=== PATIENT | male | born 1960 | race African-American/Black ===

== ENCOUNTER 2018-12-07 10:49 | Emergency (ER) | payer OTHER ==
[~2018-12-07] VITALS: Ht 177.8 cm; Wt 75.0 kg
[2018-12-07] MEDS ORDERED: MORPHINE SULFATE 4 MG/ML CPJ (NOT FOR IM USE) IV STA (11:43)
[2018-12-07] MEDS ORDERED: ONDANSETRON HCL 4MG/2ML INJ IV STA (11:43)
[2018-12-07] MEDS ORDERED: ETOMIDATE 2MG/ML 10ML VIAL IV ONE (12:10)
[2018-12-07] MEDS ORDERED: MORPHINE SULFATE 4 MG/ML CPJ (NOT FOR IM USE) IV ONE (14:15)
[2018-12-07] MEDS ORDERED: ONDANSETRON HCL 4MG/2ML INJ IV ONE (14:15)
[2018-12-07 17:30] VITALS: BP 120/75
== END 2018-12-07 17:50 | disposition home or self-care (01) ==
LOC: ER 10:49
DX: T84.020A Dislocation of internal right hip prosthesis, initial encounter (principal); Y83.8 Other surgical procedures as the cause of abnormal reaction of the patient, or of later complication, without mention of misadventure at the time of the procedure; Y92.018 Other place in single-family (private) house as the place of occurrence of the external cause
CPT/HCPCS: 27265; 73502; 96374; 96375; 96376; 99152; 99285; J2270; J2405; J3490; L1830; Z7610

== ENCOUNTER 2019-01-23 14:19 | Emergency (ER) | payer OTHER ==
[~2019-01-23] VITALS: Ht 172.7 cm; Wt 70.0 kg
[2019-01-23] MEDS ORDERED: MORPHINE SULFATE 4 MG/ML CPJ (NOT FOR IM USE) IV STA (14:42)
[2019-01-23] MEDS ORDERED: SODIUM CHLORIDE 0.9% 1,000 ML IV ONE (14:42)
[2019-01-23] MEDS ORDERED: ONDANSETRON HCL 4MG/2ML INJ IV STA (14:42)
[2019-01-23 15:41] LABS: HEMATOCRIT. 39.6 % (42.0-52.0); MEAN CORPUSCULAR HEMOGLOBIN 29.2 pg (28.0-32.0); MEAN CORPUSCULAR VOLUME 88.5 fL (80.0-94.0); MEAN PLATELET VOLUME 9.5 fl (7.4-10.4); PLATELET 278 x1000/uL (130-400); RED BLOOD CELL COUNT 4.47 mill/uL (4.7-6.1); RED CELL DISTRIBUTION WIDTH 16.7 % (11.6-14.6)
[2019-01-23 15:44] LABS: CHLORIDE 98 mEq/L (98-107)
[2019-01-23 15:47] LABS: PARTIAL THROMBOPLASTIN TIME 23.1 sec (23.4-31.0); PROTHROMBIN TIME 10.5 sec (9.6-11.0)
[2019-01-23] MEDS ORDERED: FENTANYL CITRATE/PF 50MCG/ML 2ML VIAL IV ONE (16:15)
[2019-01-23] MEDS ORDERED: KETAMINE HCL 50 MG/ML 10ML IV ONE (16:15)
[2019-01-23] MEDS ORDERED: PROPOFOL 200MG/20ML VIAL IV ONE (16:15)
[2019-01-23] MEDS ORDERED: MIDAZOLAM HCL 2 MG/2 ML VIAL IV ONE (16:15)
[2019-01-23 16:27] LABS: PLATELET ESTIMATE NORMAL
[2019-01-23 18:48] VITALS: BP 149/84
== END 2019-01-23 19:09 | disposition home or self-care (01) ==
LOC: ER 14:19
DX: S73.004A Unspecified dislocation of right hip, initial encounter (principal); X58.XXXA Exposure to other specified factors, initial encounter; Y93.89 Activity, other specified; Y92.89 Other specified places as the place of occurrence of the external cause; Y99.8 Other external cause status
CPT/HCPCS: 27250; 36415; 72170; 73502; 80053; 85025; 85610; 85730; 96374; 96375; 99152; 99153; 99285; J2250; J2270; J2405; J2704; J3010; J3490; J7030; L1830

== ENCOUNTER 2019-04-28 03:44 | Emergency (ER) | payer OTHER ==
[~2019-04-28] VITALS: Ht 175.3 cm; Wt 64.0 kg
[2019-04-28] MEDS ORDERED: ONDANSETRON HCL 4MG/2ML INJ IV STA ×2 (06:10→07:51)
[2019-04-28] MEDS ORDERED: MORPHINE SULFATE 4 MG/ML CPJ (NOT FOR IM USE) IV STA ×2 (06:10→07:51)
[2019-04-28] MEDS ORDERED: SODIUM CHLORIDE 0.9% 1,000 ML IV ONE (06:10)
[2019-04-28 06:40] LABS: BASOPHILS % 0.8 % (0.0-2.0); EOSINOPHILS % 0.6 % (0.0-5.0); HEMATOCRIT. 35.3 % (42.0-52.0); HEMOGLOBIN. 11.5 g/dL (14.0-18.0); LYMPHOCYTES % 31.9 % (20.0-50.0); MEAN CORPUSCULAR HEMOGLOBIN 30.7 pg (28.0-32.0); MEAN CORPUSCULAR VOLUME 94.4 fL (80.0-94.0); MEAN PLATELET VOLUME 8.8 fl (7.4-10.4); MONOCYTES % 9.5 % (2.0-8.0); NEUTROPHILS % 57.2 % (40.0-76.0); PLATELET 246 x1000/uL (130-400); RED BLOOD CELL COUNT 3.74 mill/uL (4.7-6.1); RED CELL DISTRIBUTION WIDTH 16.2 % (11.6-14.6)
[2019-04-28 06:43] LABS: CHLORIDE 103 mEq/L (98-107)
[2019-04-28 06:46] LABS: PARTIAL THROMBOPLASTIN TIME 23.2 sec (23.4-31.0); PROTHROMBIN TIME 10.5 sec (9.6-11.0)
[2019-04-28] MEDS ORDERED: KCL 10MEQ/50ML PREMIX 50 ML IV ONE (07:00)
[2019-04-28 08:53] VITALS: BP 145/81
== END 2019-04-28 09:13 | disposition short-term general hospital (02) ==
LOC: ER 03:44
DX: S73.004A Unspecified dislocation of right hip, initial encounter (principal); Z96.641 Presence of right artificial hip joint; W01.0XXA Fall on same level from slipping, tripping and stumbling without subsequent striking against object, initial encounter; Y93.89 Activity, other specified; Y92.018 Other place in single-family (private) house as the place of occurrence of the external cause
CPT/HCPCS: 36415; 72170; 73502; 80053; 85025; 85610; 85730; 86850; 86900; 86901; 93005; 96361; 96374; 96375; 96376; 99285; J2270; J2405; J3480; J7030; Z7610

== ENCOUNTER 2020-11-10 08:34 | Emergency (ER) | payer OTHER ==
[~2020-11-10] VITALS: Ht 175.3 cm; Wt 69.0 kg
[2020-11-10] MEDS ORDERED: ONDANSETRON HCL 4MG/2ML INJ IV STA (08:53)
[2020-11-10] MEDS ORDERED: FAMOTIDINE 20MG/2ML VIAL IV STA (08:53)
[2020-11-10] MEDS ORDERED: SODIUM CHLORIDE 0.9% 1,000 ML IV ONE (09:00)
[2020-11-10 09:59] LABS: BASOPHILS % 0.7 % (0.0-2.0); HEMATOCRIT. 49.2 % (42.0-52.0); HEMOGLOBIN. 15.4 g/dL (14.0-18.0); LYMPHOCYTES % 7.4 % (20.0-50.0); MEAN CORPUSCULAR HEMOGLOBIN 28.5 pg (28.0-32.0); MEAN CORPUSCULAR VOLUME 91.1 fL (80.0-94.0); MEAN PLATELET VOLUME 10.1 fl (7.4-10.4); MONOCYTES % 5.3 % (2.0-8.0); NEUTROPHILS % 86.6 % (40.0-76.0); PLATELET 232 x1000/uL (130-400); RED BLOOD CELL COUNT 5.39 mill/uL (4.7-6.1); RED CELL DISTRIBUTION WIDTH 15.8 % (11.6-14.6)
[2020-11-10 10:00] LABS: CHLORIDE 87 mEq/L (98-107)
[2020-11-10 10:43] LABS: INR 0.9; PROTHROMBIN TIME 9.9 sec (9.6-11.0)
[2020-11-10] MEDS ORDERED: ONDA4TAB5 MT (11:04)
[2020-11-10] MEDS ORDERED: B50 MT (11:20)
[2020-11-10 11:50] VITALS: BP 127/72
== END 2020-11-10 11:52 | disposition home or self-care (01) ==
LOC: ER 08:34
DX: R11.2 Nausea with vomiting, unspecified (principal); R10.9 Unspecified abdominal pain; R07.9 Chest pain, unspecified; Z79.899 Other long term (current) drug therapy
CPT/HCPCS: 36415; 71045; 80053; 83690; 85025; 85610; 93005; 96361; 96374; 96375; 99285; J2405; J3490; J7030

== ENCOUNTER 2024-07-18 21:41 | Emergency (ER) | payer OTHER ==
[~2024-07-18] VITALS: Ht 175.3 cm; Wt 62.0 kg
[~2024-07-18 21:41] MED LIST: B50 MT; ONDA4TAB5 MT
[2024-07-18] MEDS ORDERED: PROPOFOL 200MG/20ML VIAL IV PRN (22:30)
[2024-07-18 23:08] LABS: BASOPHILS % 0.5 % (0.0-2.0); EOSINOPHILS % 0.4 % (0.0-5.0); HEMATOCRIT. 36.9 % (42.0-52.0); HEMOGLOBIN. 11.8 g/dL (14.0-18.0); LYMPHOCYTES % 33.6 % (20.0-50.0); MEAN CORPUSCULAR HEMOGLOBIN 29.6 pg (28.0-32.0); MEAN CORPUSCULAR HGB CONC 32.1 g/dL (31.0-37.0); MEAN CORPUSCULAR VOLUME 92.2 fL (80.0-94.0); MEAN PLATELET VOLUME 9.2 fl (7.4-10.4); MONOCYTES % 8.2 % (2.0-8.0); NEUTROPHILS % 57.3 % (40.0-76.0); PLATELET 199 x1000/uL (130-400); RED CELL DISTRIBUTION WIDTH 18.9 % (11.6-14.6); WHITE BLOOD COUNT 9.6 x1000/uL (4.5-11.0)
[2024-07-18 23:15] LABS: CHLORIDE 101 mEq/L (98-107); POTASSIUM 3.7 mEq/L (3.5-5.1); SODIUM 139 mEq/L (136-145)
[2024-07-18 23:16] LABS: CARBON DIOXIDE 27 mEq/L (21-32)
[2024-07-18 23:17] LABS: CALCIUM 8.5 mg/dL (8.7-10.4)
[2024-07-18 23:21] LABS: CREATININE 1.2 mg/dL (0.6-1.3); GLUCOSE 102 mg/dL (70-105); UREA NITROGEN BLOOD 12 mg/dL (9-23)
[2024-07-18] MEDS: ACETAMINOPHEN 1000MG/100ML 100 ML IV NR (23:35)
[2024-07-18] MEDS: SODIUM CHLORIDE 0.9% 500 ML IV ONE (23:35)
[2024-07-18 23:57] VITALS: TEMP 97.7; O2SAT 100
[2024-07-19] MEDS ORDERED: IBUP-2029 MT (00:53)
[2024-07-19 01:26] VITALS: BP 114/70; PULSE 86; RESP 12; O2SAT 100
== END 2024-07-19 01:26 | disposition home or self-care (01) ==
LOC: ER 21:41
DX: T84.020A Dislocation of internal right hip prosthesis, initial encounter (principal); X58.XXXA Exposure to other specified factors, initial encounter; Y93.89 Activity, other specified; Y92.89 Other specified places as the place of occurrence of the external cause; Y99.8 Other external cause status
CPT/HCPCS: 80048; 85025; 36415; 73502 ×2; 27250; 96365; 99152; 99285; J2704; Z7610 ×5; J0131